=== PATIENT | female | born 1960 | race Caucasian/White ===

== ENCOUNTER 2024-01-13 10:09 | Day surgery (SDC) | payer MEDICARE ==
[2024-01-11 12:05] VITALS: BMI 28.1
[2024-01-13 10:52] VITALS: TEMP 97.5
[2024-01-13] MEDS: LACTATED RINGERS 1,000 ML IV SCH (10:56)
[2024-01-13] MEDS: IV FLUID CONTINUATION 1,000 ML IV ONE (10:56)
[2024-01-13] MEDS ORDERED: PROPOFOL 10 MG/ML 20 ML VIAL IV ONE (11:49)
--- NOTE | 2024-01-13 12:07 | P.PCN ---
Date of Procedure: 01/13/24 Procedure(s) Performed: BRIEF HISTORY: Patient is a 63-year-old pleasant white female scheduled for an elective colonoscopy as a part of screening for colon cancer/positive Cologuard. PROCEDURE PERFORMED: Colonoscopy. PREOPERATIVE DIAGNOSIS: Screening for colon cancer/positive Cologuard. IV sedation per Anesthesia. PROCEDURE: After informed consent was obtained, the patient, was brought into the endoscopy unit. IV sedation was administered by Anesthesia under continuous monitoring. Digital rectal examination was normal. Initially the Olympus CF-160 flexible video colonoscope was then inserted in the rectum, gradually advanced into the cecum without any difficulty. Careful examination was performed as the scope was gradually being withdrawn. Ileocecal valve and the appendiceal orifice were visualized and appeared normal. Prep was excellent. Mucosa of the cecum, ascending colon, transverse colon, descending colon, sigmoid colon, and rectum appeared normal. Retroflexion was performed in the rectum and no lesions were seen. The patient tolerated the procedure well. 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 RECOMMENDATIONS: Findings of this examination were discussed with the patient as well as her family.. Advised to have repeat screening colonoscopy in 10 years.
[2024-01-13 12:16] VITALS: RESP 16
[2024-01-13 12:35] VITALS: BP 119/66; PULSE 83
== END 2024-01-13 12:47 | disposition home or self-care (01) ==
LOC: ORWHC2ENDO 10:09
PROVIDERS: ATTEND Internal Medicine Gastroenterology
DX: R19.5 Other fecal abnormalities